=== PATIENT | female | born 1945 | race Caucasian/White ===

== ENCOUNTER 2023-10-09 04:40 | Inpatient (IN) | payer MEDICARE ==
[2023-10-09 05:38] LABS: Anisocytosis Slight; Basophils % (A) 0 %; Eosinophils # (A) 0.1 k/uL (0-0.7); Eosinophils % (A) 1 %; HCT 40.6 % (34.0-46.0); HGB 12.4 gm/dL (11.4-16.0); Hypochromasia Moderate; Lymphocytes # (A) 1.7 k/uL (1.0-4.8); Lymphocytes % (A) 18 %; MCH 25.7 pg (25.0-35.0); MCHC 30.6 g/dL (31.0-37.0); Mean Platelet Volume 9.8; Monocytes # (A) 0.4 k/uL (0-1.0); Monocytes % (A) 4 %; Neutrophils # (A) 7.2 k/uL (1.3-7.7); Neutrophils % (A) 76 %; Platelet Count 195 k/uL (150-450); RBC 4.83 m/uL (3.80-5.40); RDW 16.4 % (11.5-15.5); WBC 9.5 k/uL (3.8-10.6)
--- NOTE | 2023-10-09 05:42 | XR ---
EXAMINATION TYPE: XR chest 1V portable DATE OF EXAM: 10/09/2023 COMPARISON: NONE HISTORY: Dyspnea. TECHNIQUE: Single frontal view of the chest is obtained. FINDINGS: There is cardiomegaly and atherosclerotic thoracic aorta and central increased opacities. The osseous structures are intact. IMPRESSION: Suspect CHF exacerbation/fluid overload state. Correlate clinically.
[2023-10-09 05:47] LABS: INR 1.2 (<1.2); Partial Thromboplastin Time 27.9 sec (22.0-30.0); Prothrombin Time 12.9 sec (10.0-12.5)
[2023-10-09 05:57] LABS: ALT 34 U/L (4-34); AST 48 U/L (14-36); African American GFR (CKD) 85 (>60 ml/min/1.73 sqM); Alkaline Phosphatase 106 U/L (38-126); Anion Gap 14 mmol/L; Blood Urea Nitrogen 25 mg/dL (7-17); Calcium 8.7 mg/dL (8.4-10.2); Carbon Dioxide 19 mmol/L (22-30); Chloride 112 mmol/L (98-107); Glucose 122 mg/dL (74-99); Non-African American GFR(CKD) 74 (>60 ml/min/1.73 sqM); Potassium 3.5 mmol/L (3.5-5.1); Sodium 145 mmol/L (137-145); Total Bilirubin 1.3 mg/dL (0.2-1.3); Total Protein 6.6 g/dL (6.3-8.2)
[2023-10-09 06:06] LABS: NT-Pro-B-Type Natriuretic Pept 2030 pg/mL
[2023-10-09] MEDS: FUROSEMIDE 10 MG/ML 4 ML VIAL IV STA (06:33)
[2023-10-09] MEDS: NITROGLYCERIN OINT 1 INCH/GM PACKET TOPICAL STA (06:33)
--- NOTE | 2023-10-09 07:20 | ED ---
SOB HPI - General Chief Complaint: Shortness of Breath Stated Complaint: ROSENDA Time Seen by Provider: 10/09/23 05:26 Source: patient, EMS Mode of arrival: EMS Limitations: no limitations - History of Present Illness Initial Comments: This patient is 78-year-old woman who presents with complaint that she has had worsening shortness of breath going back a little over 2 day2. She states she had been seen October 06 at the clinic and states that they gave her "some pills." The patient states that she has not had any improvement and in fact may be feeling a little worse. Patient states that the breathing is worse when she is lying flat. It is better when she is sitting up. She denies change in her legs or swelling. No change in urination or bowel movements. No chest pain. MD Complaint: shortness of breath Onset/Timin -: days(s) Severity scale (1-10): 0 Consistency: constant Improves With: oxygen, upright position Worsens With: lying flat Associated Symptoms: cough, sputum production - Related Data Home Oxygen Therapy: No Home Medications Medication Instructions Recorded Confirmed Apixaban [Eliquis] 5 mg PO BID 10/09/23 10/09/23 Atorvastatin [Lipitor] 10 mg PO HS 10/09/23 10/09/23 Azithromycin [Zithromax Z Pack] See Taper PO DIRECTED 10/09/23 10/09/23 Famotidine [Pepcid] 20 mg PO DAILY 10/09/23 10/09/23 Levothyroxine Sodium [Synthroid] 25 mcg PO DAILY 10/09/23 10/09/23 Metoprolol Succinate (ER) [Toprol 100 mg PO DAILY 10/09/23 10/09/23 XL] Montelukast [Singulair] 10 mg PO HS 10/09/23 10/09/23 Spironolactone [Aldactone] 12.5 mg PO DAILY 10/09/23 10/09/23 Previous Rx's Medication Instructions Recorded Furosemide [Lasix] See Rx Instructions .ROUTE 10/10/23 .COMPLEX #90 tab Losartan [Cozaar] 12.5 mg PO DAILY #30 tab 10/10/23 Potassium Chloride ER [K-Dur 10] 10 meq PO DAILY #30 tab 10/10/23 Allergies Allergy/AdvReac Type Severity Reaction Status Date / Time Penicillins Allergy Unknown Verified 10/09/23 08:52 codeine AdvReac "makes Verified 10/09/23 08:52 patient hyper" Review of Systems ROS Statement: Those systems with pertinent positive or pertinent negative responses have been documented in the HPI. ROS Other: All systems not noted in ROS Statement are negative. Constitutional: Denies: fever, weakness Respiratory: Reports: cough, dyspnea Cardiovascular: Reports: orthopnea. Denies: chest pain, palpitations, edema, syncope Gastrointestinal: Denies: abdominal pain, vomiting, diarrhea, melena, hematochezia Genitourinary: Denies: dysuria, hematuria Musculoskeletal: Denies: back pain Skin: Denies: rash Neurological: Denies: headache, weakness Past Medical History Past Medical History: Atrial Fibrillation, COPD, Deep Vein Thrombosis (DVT), Hy perlipidemia, Hypertension History of Any Multi-Drug Resistant Organisms: None Reported Past Surgical History: Adenoidectomy, Tonsillectomy Past Psychological History: No Psychological Hx Reported Smoking Status: Former smoker Past Alcohol Use History: None Reported Past Drug Use History: None Reported General Exam Limitations: no limitations General appearance: alert, in no apparent distress Head exam: Present: atraumatic, normocephalic Eye exam: Present: normal appearance. Absent: scleral icterus, conjunctival injection Neck exam: Present: normal inspection Respiratory exam: Present: rales, rhonchi. Absent: respiratory distress, wheezes, stridor, accessory muscle use Cardiovascular Exam: Present: irregular rhythm, gallop. Absent: systolic murmur , diastolic murmur, rubs GI/Abdominal exam: Present: soft. Absent: distended, tenderness, guarding, rebound, rigid Extremities exam: Present: normal inspection, normal capillary refill. Absent: pedal edema, calf tenderness Back exam: Present: normal inspection. Absent: CVA tenderness (R), CVA tenderness (L) Neurological exam: Present: alert Skin exam: Present: warm, dry, intact, normal color. Absent: rash Course Vital Signs 10/09/23 10/09/23 10/09/23 04:46 05:59 06:20 Temperature 98.6 F Pulse Rate 87 69 73 Respiratory 18 18 16 Rate Blood Pressure 162/96 138/81 143/68 O2 Sat by Pulse 95 95 96 Oximetry 10/09/23 08:47 Temperature Pulse Rate 76 Respiratory 16 Rate Blood Pressure 128/69 O2 Sat by Pulse 96 Oximetry Medical Decision Making - Medical Decision Making The patient had chest x-ray that I interpreted as negative for acute infiltrate or pneumothorax. There is vascular congestion consistent with CHF Was pt. sent in by a medical professional or institution (JUAN Cramer, EXTRUSION PRESS SUPERVISOR, urgent care, hospital, or senior care...) When possible be specific @ -[No] Did you speak to anyone other than the patient for history (EMS, parent, family, police, friend...)? What history was obtained from this source @ -[No] Did you review nursing and triage notes (agree or disagree)? Why? @ -[I reviewed and agree with nursing and triage notes] Were old charts reviewed (outside hosp., previous admission, EMS record, old EKG, old radiological studies, urgent care reports/EKG's, senior care records)? Report findings @ -[No old charts were reviewed] Differential Diagnosis (chest pain, altered mental status, abdominal pain women, abdominal pain men, vaginal bleeding, weakness, fever, dyspnea, syncope, headache, dizziness, GI bleed, back pain, seizure, CVA, palpatations, mental health, musculoskeletal)? @ -[Differential Dyspnea: Coronary syndrome, arrhythmia, tamponade, asthma, COPD, pulmonary embolism, pneumonia, pneumothorax, pulmonary effusion, anaphylaxis, diabetic ketoacidosis, flailed chest, pulmonary contusion, diaphragmatic rupture, anemia, neuromuscular, this is not meant to be an all-inclusive list. EKG interpreted by me (3pts min.). @ -[I interpreted as above X-rays interpreted by me (1pt min.). @ -[I interpreted as above CT interpreted by me (1pt min.). @ -[None done] U/S interpreted by me (1pt. min.). @ -[None done] What testing was considered but not performed or refused? (CT, X-rays, U/S, labs)? Why? @ -[None] What meds were considered but not given or refused? Why? @ -[None] Did you discuss the management of the patient with other professionals (professionals i.e. JUAN Cramer, EXTRUSION PRESS SUPERVISOR, lab, RT, psych nurse, bilingual social worker, lawyer real estate, teacher, credit control officer, case folder)? Give summary @ -[Case discussed with admitting physician and treatment recommendations incorporated Was smoking cessation discussed for >3mins.? @ -[No] Was critical care preformed (if so, how long)? @ -[No] Were there social determinants of health that impacted care today? How? (Homelessness, low income, unemployed, alcoholism, drug addiction, transportation, low edu. Level, literacy, decrease access to med. care, fpc, rehab)? @ -[No] Was there de-escalation of care discussed even if they declined (Discuss DNR or withdrawal of care, Hospice)? DNR status @ -[No] What co-morbidities impacted this encounter? (DM, HTN, Smoking, COPD, CAD, Cancer, CVA, ARF, Chemo, Hep., AIDS, mental health diagnosis, sleep apnea, morbid obesity)? @ -[Atrial fibrillation, congestive heart failure Was patient admitted / discharged? Hospital course, mention meds given and route, prescriptions, significant lab abnormalities, going to OR and other pertinent info. @ -[Patient is 78-year-old woman here with dyspnea and found to have congestive heart failure. She started on diuretics and will be admitted for further treatment and evaluation Undiagnosed new problem with uncertain prognosis? @ -[No] Drug Therapy requiring intensive monitoring for toxicity (Heparin, Nitro, Insulin, Cardizem)? @ -[No] Were any procedures done? @ -[No] Diagnosis/symptom? @ -[Acute dyspnea Acute exacerbation of congestive heart failure Acute, or Chronic, or Acute on Chronic? @ -[ Uncomplicated (without systemic symptoms) or Complicated (systemic symptoms)? @ -[Complicated by dyspnea Side effects of treatment? @ -[No] Exacerbation, Progression, or Severe Exacerbation? @ -[Exacerbation Poses a threat to life or bodily function? How? (Chest pain, USA, MS, pneumonia, PE, COPD, DKA, ARF, appy, cholecystitis, CVA, Diverticulitis, Homicidal, Suicidal, threat to staff... and all critical care pts) @ -[Yes congestive heart failure may progress to respiratory failure as well - Lab Data Result diagrams: 10/10/23 04:19 10/10/23 04:19 Lab Results 10/09/23 10/09/23 10/09/23 Range/Units 05:00 05:00 05:00 WBC 9.5 (3.8-10.6) k/uL RBC 4.83 (3.80-5.40) m/uL Hgb 12.4 (11.4-16.0) gm/dL Hct 40.6 (34.0-46.0) % MCV 84.0 (80.0-100.0) fL MCH 25.7 (25.0-35.0) pg MCHC 30.6 L (31.0-37.0) g/dL RDW 16.4 H (11.5-15.5) % Plt Count 195 (150-450) k/uL MPV 9.8 Neutrophils % 76 % Lymphocytes % 18 % Monocytes % 4 % Eosinophils % 1 % Basophils % 0 % Neutrophils # 7.2 (1.3-7.7) k/uL Lymphocytes # 1.7 (1.0-4.8) k/uL Monocytes # 0.4 (0-1.0) k/uL Eosinophils # 0.1 (0-0.7) k/uL Basophils # 0.0 (0-0.2) k/uL Hypochromasia Moderate Anisocytosis Slight PT 12.9 H (10.0-12.5) sec INR 1.2 H (<1.2) APTT 27.9 (22.0-30.0) sec Sodium 145 (137-145) mmol/L Potassium 3.5 (3.5-5.1) mmol/L Chloride 112 H (98-107) mmol/L Carbon Dioxide 19 L (22-30) mmol/L Anion Gap 14 mmol/L BUN 25 H (7-17) mg/dL Creatinine 0.77 (0.52-1.04) mg/dL Est GFR (CKD-EPI)AfAm 85 (>60 ml/min/1.73 sqM) Est GFR (CKD-EPI)NonAf 74 (>60 ml/min/1.73 sqM) Glucose 122 H (74-99) mg/dL Lactic Ac Sepsis Rflx Plasma Lactic Acid Fernando (0.7-2.0) mmol/L Calcium 8.7 (8.4-10.2) mg/dL Total Bilirubin 1.3 (0.2-1.3) mg/dL AST 48 H (14-36) U/L ALT 34 (4-34) U/L Alkaline Phosphatase 106 (38-126) U/L Troponin I (0.000-0.034) ng/mL NT-Pro-B Natriuret Pep 2030 pg/mL Total Protein 6.6 (6.3-8.2) g/dL Albumin 4.0 (3.5-5.0) g/dL Influenza Type A (PCR) (Not Detectd) Influenza Type B (PCR) (Not Detectd) RSV (PCR) (Not Detectd) SARS-CoV-2 (PCR) (Not Detectd) 10/09/23 10/09/23 10/09/23 Range/Units 05:00 05:00 05:02 WBC (3.8-10.6) k/uL RBC (3.80-5.40) m/uL Hgb (11.4-16.0) gm/dL Hct (34.0-46.0) % MCV (80.0-100.0) fL MCH (25.0-35.0) pg MCHC (31.0-37.0) g/dL RDW (11.5-15.5) % Plt Count (150-450) k/uL MPV Neutrophils % % Lymphocytes % % Monocytes % % Eosinophils % % Basophils % % Neutrophils # (1.3-7.7) k/uL Lymphocytes # (1.0-4.8) k/uL Monocytes # (0-1.0) k/uL Eosinophils # (0-0.7) k/uL Basophils # (0-0.2) k/uL Hypochromasia Anisocytosis PT (10.0-12.5) sec INR (<1.2) APTT (22.0-30.0) sec Sodium (137-145) mmol/L Potassium (3.5-5.1) mmol/L Chloride (98-107) mmol/L Carbon Dioxide (22-30) mmol/L Anion Gap mmol/L BUN (7-17) mg/dL Creatinine (0.52-1.04) mg/dL Est GFR (CKD-EPI)AfAm (>60 ml/min/1.73 sqM) Est GFR (CKD-EPI)NonAf (>60 ml/min/1.73 sqM) Glucose (74-99) mg/dL Lactic Ac Sepsis Rflx Plasma Lactic Acid Fernando 2.4 H* (0.7-2.0) mmol/L Calcium (8.4-10.2) mg/dL Total Bilirubin (0.2-1.3) mg/dL AST (14-36) U/L ALT (4-34) U/L Alkaline Phosphatase (38-126) U/L Troponin I <0.012 (0.000-0.034) ng/mL NT-Pro-B Natriuret Pep pg/mL Total Protein (6.3-8.2) g/dL Albumin (3.5-5.0) g/dL Influenza Type A (PCR) Not Detected (Not Detectd) Influenza Type B (PCR) Not Detected (Not Detectd) RSV (PCR) Not Detected (Not Detectd) SARS-CoV-2 (PCR) Not Detected (Not Detectd) 10/09/23 Range/Units 06:43 WBC (3.8-10.6) k/uL RBC (3.80-5.40) m/uL Hgb (11.4-16.0) gm/dL Hct (34.0-46.0) % MCV (80.0-100.0) fL MCH (25.0-35.0) pg MCHC (31.0-37.0) g/dL RDW (11.5-15.5) % Plt Count (150-450) k/uL MPV Neutrophils % % Lymphocytes % % Monocytes % % Eosinophils % % Basophils % % Neutrophils # (1.3-7.7) k/uL Lymphocytes # (1.0-4.8) k/uL Monocytes # (0-1.0) k/uL Eosinophils # (0-0.7) k/uL Basophils # (0-0.2) k/uL Hypochromasia Anisocytosis PT (10.0-12.5) sec INR (<1.2) APTT (22.0-30.0) sec Sodium (137-145) mmol/L Potassium (3.5-5.1) mmol/L Chloride (98-107) mmol/L Carbon Dioxide (22-30) mmol/L Anion Gap mmol/L BUN (7-17) mg/dL Creatinine (0.52-1.04) mg/dL Est GFR (CKD-EPI)AfAm (>60 ml/min/1.73 sqM) Est GFR (CKD-EPI)NonAf (>60 ml/min/1.73 sqM) Glucose (74-99) mg/dL Lactic Ac Sepsis Rflx Y Plasma Lactic Acid Fernando (0.7-2.0) mmol/L Calcium (8.4-10.2) mg/dL Total Bilirubin (0.2-1.3) mg/dL AST (14-36) U/L ALT (4-34) U/L Alkaline Phosphatase (38-126) U/L Troponin I (0.000-0.034) ng/mL NT-Pro-B Natriuret Pep pg/mL Total Protein (6.3-8.2) g/dL Albumin (3.5-5.0) g/dL Influenza Type A (PCR) (Not Detectd) Influenza Type B (PCR) (Not Detectd) RSV (PCR) (Not Detectd) SARS-CoV-2 (PCR) (Not Detectd) - EKG Data -: EKG Interpreted by Me EKG shows normal: axis (Normal), intervals (Normal) Rate: normal (Rate 78 bpm) Interpretation: other (Underlying rhythm is atrial fibrillation) Disposition Clinical Impression: CHF (congestive heart failure) Disposition: ADMITTED IP TO THIS HOSP Condition: Fair Is patient prescribed a controlled substance at d/c from ED?: No
[2023-10-09] MEDS ORDERED: NALOXONE 0.4 MG/ML 1 ML VIAL IV PRN (09:57)
[2023-10-09] MEDS ORDERED: ACETAMINOPHEN TAB 325 MG TAB PO PRN (09:58)
[2023-10-09] MEDS ORDERED: ONDANSETRON 4 MG/2 ML VIAL IVP PRN (09:58)
--- NOTE | 2023-10-09 10:02 | P.HPIM ---
History of Present Illness H&P Date: 10/09/23 Chief Complaint: shortness of breath Patient is a also female with known COPD, prior pulmonary embolism, A-fib anticoagulated with Eliquis, hypertension, and dyslipidemia who presented to the emergency department via EMS with complaints of shortness of breath. On arrival to the ER vital signs were notable for blood pressure of 162/96. Initial laboratory analysis CBC, coag studies, CMP, troponin, and BNP which were remarkable for sodium chloride of 112, carbon dioxide 19, BUN 25, and glucose of 122. Lactic acid was elevated at 2.4. Influenza A/B/RSV/COVID-19 testing was negative. Initial troponin was negative. BNP was elevated at 2030. Chest x- ray demonstrated increased pulmonary vascular congestion. She was started on Nitropatch and given a dose of Lasix in the emergency department. Arrangements were made for admission. Patient seen and examined at bedside. She reports that she saw Dr. Cifuentes at [facility] and was prescribed prednisone adn zithromax on 10/07/23. Last night she took a breathing treatment last night and then felt better. This morning was short of breath and wheezing and called the ambulance. She has been feeling SOB since 10/05. She was been having increasing wheezing since that time. BReathing is worse with ambulation and laying flat. + edema b/l LE. Significant coughing. She denies any chest pain. No change in urine or bowel movements. No fevers at home. Appetitie has been at home. Follow with Dr. Sesay for A fib, last seen about 1 month ago. Possible hx of CHF in the past but she is not sure. 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 Vital signs reviewed General: nontoxic, no distress, appears at stated age, severe kyphosis Derm: warm, dry Eyes: EOMI, no lid lag, anicteric sclera, pupils equal round reactive to light ENT: Nose and ears atraumatic Cardiovascular: S1S2 reg, no murmur, 2+ edema bilateral lower extremities Lungs: Sounds bilateral, no rhonchi, no rales, no wheeze, + accessory muscle use Abdominal: soft, nontender to palpation, no guarding Ext: no gross muscle atrophy, no contractures Neuro: CN II-XII grossly intact, No focal neuro deficits Psych: Alert, oriented, appropriate affect Assessment/Plan: Acute exacerbation of diastolic heart failure, EF 50-55% Hypertension Dyslipidemia Permanent atrial fibrillation -Lasix 40 mg IV twice daily -Strict I's and O's, daily weights -Resume Aldactone 12.5 mg daily, metoprolol 100 mg daily -Lipitor 10 mg daily-trend troponins -Discontinue nitro - Echo from cardiology associates on physical chart Lactic acid likely secondary to hypoperfusion -No need to continue to trend Hypothyroidism -Levothyroxine 25 mcg daily COPD without exacerbation -Continue with Singulair -Will discontinue prednisone and Zithromax History of pulmonary embolism -Resume home Eliquis Imaging: X-rays reviewed by myself shows increased pulmonary vascular congestion with severe kyphosis. EKG is reviewed by myself shows atrial fibrillation with a ventricular rate of [address]-T wave changes. Data Review: As per HPI The patient is admitted with an anticipated less than 2 midnight stay for evaluation of Acute exacerbation of Congestive heart failure. Surrogate decision-maker: Son CODE STATUS: Yes for PCR, meds, and shock, no for intubation DVT prophylaxis: Eliquis Anticipated discharge date: in 24-[address]: home This dictation was prepared using [employer] voice recognition software. Though every attempt is made to correct errors during dictation some may still exist. Past Medical History Past Medical History: Atrial Fibrillation, COPD, Hyperlipidemia, Hypertension Additional Past Medical History / Comment(s): Pulmonary Embolism History of Any Multi-Drug Resistant Organisms: None Reported Past Surgical History: Adenoidectomy, Tonsillectomy Past Psychological History: No Psychological Hx Reported Smoking Status: Former smoker Past Alcohol Use History: None Reported Past Drug Use History: None Reported Medications and Allergies Home Medications Medication Instructions Recorded Confirmed Type Apixaban [Eliquis] 5 mg PO BID 10/09/23 10/09/23 History Atorvastatin [Lipitor] 10 mg PO HS 10/09/23 10/09/23 History Azithromycin [Zithromax Z Pack] See Taper PO DIRECTED 10/09/23 10/09/23 History Famotidine [Pepcid] 20 mg PO DAILY 10/09/23 10/09/23 History Furosemide [Lasix] 20 mg PO BID-W/MEALS 10/09/23 10/09/23 History Levothyroxine Sodium [Synthroid] 25 mcg PO DAILY 10/09/23 10/09/23 History Metoprolol Succinate (ER) [Toprol 100 mg PO DAILY 10/09/23 10/09/23 History Xl] Montelukast [Singulair] 10 mg PO HS 10/09/23 10/09/23 History Spironolactone [Aldactone] 12.5 mg PO DAILY 10/09/23 10/09/23 History predniSONE [Deltasone] 40 mg PO DAILY 10/09/23 10/09/23 History Allergies Allergy/AdvReac Type Severity Reaction Status Date / Time Penicillins Allergy Unknown Verified 10/09/23 08:52 codeine AdvReac "makes Verified 10/09/23 08:52 patient hyper" Physical Exam Osteopathic Statement: *. No significant issues noted on an osteopathic structural exam other than those noted in the History and Physical/Consult. Vitals: Vital Signs Temp Pulse Pulse Resp BP BP Pulse Ox 10/09/23 09:40 98.2 F 71 18 144/87 96 10/09/23 08:47 76 16 128/69 96 10/09/23 06:20 73 16 143/68 96 10/09/23 05:59 69 18 138/81 95 10/09/23 04:46 98.6 F 87 18 162/96 95 Intake and Output 10/08/23 10/09/23 10/09/23 22:59 06:59 14:59 Other: Weight 76.657 kg Results CBC & Chem 7: 10/09/23 05:00 10/09/23 05:00 Labs: Abnormal Lab Results - Last 24 Hours (Table) 10/09/23 10/09/23 10/09/23 Range/Units 05:00 05:00 05:00 MCHC 30.6 L (31.0-37.0) g/dL RDW 16.4 H (11.5-15.5) % PT 12.9 H (10.0-12.5) sec INR 1.2 H (<1.2) Chloride 112 H (98-107) mmol/L Carbon Dioxide 19 L (22-30) mmol/L BUN 25 H (7-17) mg/dL Glucose 122 H (74-99) mg/dL Plasma Lactic Acid Fernando (0.7-2.0) mmol/L AST 48 H (14-36) U/L 04/06/24 Range/Units 05:00 MCHC (31.0-37.0) g/dL RDW (11.5-15.5) % PT (10.0-12.5) sec INR (<1.2) Chloride (98-107) mmol/L Carbon Dioxide (22-30) mmol/L BUN (7-17) mg/dL Glucose (74-99) mg/dL Plasma Lactic Acid Fernando 2.4 H* (0.7-2.0) mmol/L AST (14-36) U/L
[2023-10-09] MEDS: SPIRONOLACTONE 25 MG TAB PO SCH (10:53)
[2023-10-09] MEDS: LOSARTAN 25 MG TAB PO SCH (10:53)
[2023-10-09] MEDS: METOPROLOL SUCCINATE (ER) 100 MG TAB.ER.24H PO SCH (10:54)
[2023-10-09] MEDS: FAMOTIDINE 20 MG TAB PO SCH (10:54)
[2023-10-09] MEDS: APIXABAN 5 MG TAB PO SCH (10:56)
[2023-10-09] MEDS: LEVOTHYROXINE 25 MCG TAB PO SCH (10:56)
--- NOTE | 2023-10-09 13:00 | CONS ---
CONSULTATION CHIEF COMPLAINT: Shortness of breath. HISTORY OF PRESENT ILLNESS: Jazmin is a 78-year-old lady with a history of permanent atrial fibrillation, COPD, prior history of pulmonary embolism, hypertension, dyslipidemia, who presented to hospital with shortness of breath. Her blood pressure was poorly controlled on her initial presentation. Chest x-ray showed pulmonary congestion and the patient's symptoms have improved with intravenous diuretics. At the time of my evaluation, patient appears comfortable at rest. Troponin is negative. BNP is elevated at 2030. EKG shows atrial fibrillation with nonspecific ST-T wave changes. PAST MEDICAL HISTORY: Significant for permanent atrial fibrillation, hypertension, hypothyroidism, dyslipidemia and COPD. MEDICATIONS: Medications at home included: 1. Aldactone. 2. Singulair. 3. Toprol-XL. 4. Synthroid. 5. Pepcid. 6. Lipitor. 7. Eliquis. 8. Lasix. 9. Z-Carlos. ALLERGIES: Penicillin and codeine. FAMILY HISTORY: Negative for premature coronary artery disease. SOCIAL HISTORY: Negative for current smoking issues or drug abuse. REVIEW OF SYSTEMS: 14 out of 14 review of systems has been performed, pertinents are as documented. PHYSICAL EXAMINATION: VITAL SIGNS: Afebrile, heart rate is 70 beats per minute, blood pressure 130/69, respiratory rate 18, O2 saturation is 96% on 2 L. CHEST: Reveals occasional crackles bilaterally. HEART: Reveals first and second heart sounds. Irregular rhythm and a systolic murmur at the apex. ABDOMEN: Soft. EXTREMITIES: Reveals 1+ edema. Peripheral pulses are felt. LABORATORY DATA: Labs show a hemoglobin of 12.4, platelet count is 195, creatinine is 0.7. BNP is elevated. Troponin is negative. ASSESSMENT: 1. Permanent atrial fibrillation with controlled ventricular rate. 2. Acute exacerbation of chronic diastolic heart failure. PLAN: We will obtain a 2D echo. Continue the IV Lasix and continue rest of her medications. MMODL / IJN: [id number] /
[2023-10-09 14:01] VITALS: BMI 28.1
[2023-10-09] MEDS: FUROSEMIDE 10 MG/ML 4 ML VIAL IV SCH (18:08)
[2023-10-09] MEDS ORDERED: MELATONIN 3 MG TABLET PO PRN (21:00)
[2023-10-09] MEDS: ATORVASTATIN 10 MG TAB PO SCH (21:33)
[2023-10-09] MEDS: MONTELUKAST 10 MG TAB PO SCH (21:33)
[2023-10-09 22:35] VITALS: TEMP 97.3
[2023-10-10 03:40] VITALS: PULSE 74
[2023-10-10 09:45] LABS: HCT 38.8 % (37.2-46.3); HGB 11.7 g/dL (12.0-15.0); MCH 25.2 pg (27.0-32.0); MCHC 30.2 g/dL (32.0-37.0); MCV 83.6 FL (80.0-97.0); Mean Platelet Volume 12.2 FL (9.5-12.2); NRBC Per 100 WBC 0 X 10*3/uL (0.00-0.01); Platelet Count 215 X 10*3/uL (140-440); RBC 4.64 X 10*6/uL (4.10-5.20); RDW 17.1 % (11.5-14.5); WBC 11.89 X 10*3/uL (4.50-10.00)
[2023-10-10 09:48] VITALS: BP 134/84; RESP 20
[2023-10-10 10:02] LABS: BUN/Creat Ratio 23.25 Ratio (12.00-20.00); Blood Urea Nitrogen 18.6 mg/dL (9.0-27.0); Calcium 8.5 mg/dL (8.7-10.3); Carbon Dioxide 27.4 mmol/L (21.6-31.8); Chloride 107 mmol/L (96-109); Glucose 96 mg/dL (70-110); Magnesium 2.2 mg/dL (1.5-2.4); Phosphorus 3.5 mg/dL (2.4-5.1); Potassium 3.2 mmol/L (3.5-5.5); Sodium 147 mmol/L (135-145)
[2023-10-10] MEDS ORDERED: Potassium Replacement Protocol 1 EACH MISC MISCELLANE PRN (10:27)
--- NOTE | 2023-10-10 10:33 | PN ---
PROGRESS NOTE SUBJECTIVE: Jazmin is a 78-year-old lady who is admitted to hospital with shortness of breath. She has known atrial fibrillation, COPD, and prior history of pulmonary embolism. She was in congestive heart failure. We treated her with intravenous diuretics with significant improvement in her symptoms. PHYSICAL EXAMINATION: GENERAL: At the time of my evaluation this morning, she appears comfortable at rest. VITAL SIGNS: Afebrile, heart rate is 74 beats, blood pressure is 130/84, respiratory rate is 18, and O2 saturation is 94% on 2 L. NECK: There is no jugular venous distention. CHEST: Reveals good air entry bilaterally. HEART: Reveals first and second heart sounds, irregular rhythm and a systolic murmur at the apex. ABDOMEN: Soft. EXTREMITIES: Did not reveal any edema. Peripheral pulses are felt. LABORATORY DATA: Show that the potassium is 3.2, which will be supplemented. Hemoglobin is 11.7, creatinine is 0.8. ASSESSMENT: Acute exacerbation of chronic diastolic heart failure, permanent atrial fibrillation. PLAN: Patient to switch the Lasix to p.o. Send the patient home on K-Dur along with the Lasix. She sees Dr. Sesay in our office and will arrange a followup with him on discharge. MMODL / IJN: [id number] /
[2023-10-10] MEDS: POTASSIUM CHLORIDE ER 20 MEQ TAB.ER PO SCH (10:43)
--- NOTE | 2023-10-10 10:49 | P.DS ---
Providers Date of admission: 10/09/23 06:45 Expected date of discharge: 10/10/23 Attending physician: Siri Melendez MD Consults: 10/09/23 06:43 Consult Physician Routine Consulting Provider: Rodriguez Sesay Consult Reason/Comments: Your patient. CHF exacerbation Do you want consulting provider notified?: Yes Primary care physician: Stated None Hospital Course: Discharge Diagnosis: Acute exacerbation of diastolic heart failure, EF 50-55% Hypernatrmia, due to forced diuresis Hypokalemia Hypertension Dyslipidemia Permanent atrial fibrillation Lactic acid likely secondary to hypoperfusion COPD without exacerbation History of pulmonary embolism Hospital Course: Patient is a also female with known COPD, prior pulmonary embolism, A-fib anti coagulated with Eliquis, hypertension, and dyslipidemia who presented to the emergency department via EMS with complaints of shortness of breath. On arrival to the ER vital signs were notable for blood pressure of 162/96. Initial laboratory analysis CBC, coag studies, CMP, troponin, and BNP which were remarkable for sodium chloride of 112, carbon dioxide 19, BUN 25, and glucose of 122. Lactic acid was elevated at 2.4. Influenza A/B/RSV/COVID-19 testing was negative. Initial troponin was negative. BNP was elevated at 2030. Chest x- ray demonstrated increased pulmonary vascular congestion. She was started on Nitropatch and given a dose of Lasix in the emergency department. Arrangements were made for admission. Cardiology. Her recent echocardiogram was reviewed. She was continued on diuresis. By the next morning she had significant improvement in her shortness of breath and lower extremity edema. She was cleared by cardiology for discharge. She was noted to have slightly low potassium levels at 3.5 on day of admission and 3.2 on day of discharge. She was therefore started on potassium supplementation. She was also started on Cozaar during her hospital stay due to mildly elevated blood pressures and diagnosis of congestive heart failure. Follow-up: New medications include Lasix being increased to 40 mg in the morning and 20 mg at night, potassium chloride 10 mill equivalents daily, losartan 12.5 mg daily. She will have repeat blood work in 3 days to monitor potassium and sodium levels with results to [facility] at [facility] and Dr. Sesay. She is to follow-up with Vane in 1 to [address] Sesay her outpatient fitness club manager in 1 to 2 weeks. Patient seen and examined at bedside. Better today than yesterday but still having some shortness of breath. We had a александр discussion that her significant kyphosis and scoliosis may be causing some shortness of breath. Vital signs reviewed and stable. General: Nontoxic, no distress, appears at stated age Cardiovascular: S1S2 reg, no murmur, positive posterior tibial pulse bilateral, Lungs: Decreased breath sounds bilateral, no rhonchi, no rales, no accessory mu scle use Abdominal: Soft, nontender to palpation, no guarding, no appreciable organomegaly Ext: No gross muscle atrophy, no edema b/l lower extremities, no contractures Neuro: CN II-XI grossly intact, no focal neuro deficits Psych: Alert, oriented, appropriate affect A total of 32 minutes of time were spent preparing this complex discharge summary. Patient was discharged on 10/10/23. This dictation was prepared using [employer] voice recognition software. Though every attempt is made to correct errors during dictation some may still exist. Plan - Discharge Summary Discharge Rx Participant: Yes New Discharge Prescriptions: New Losartan [Cozaar] 12.5 mg PO DAILY #30 tab Potassium Chloride ER [K-Dur 10] 10 meq PO DAILY #30 tab Furosemide [Lasix] See Rx Instructions .ROUTE .COMPLEX #90 tab Continue Levothyroxine Sodium [Synthroid] 25 mcg PO DAILY Famotidine [Pepcid] 20 mg PO DAILY Apixaban [Eliquis] 5 mg PO BID Montelukast [Singulair] 10 mg PO HS Metoprolol Succinate (ER) [Toprol XL] 100 mg PO DAILY Atorvastatin [Lipitor] 10 mg PO HS Azithromycin [Zithromax Z Pack] See Taper PO DIRECTED Spironolactone [Aldactone] 12.5 mg PO DAILY Discontinued predniSONE [Deltasone] 40 mg PO DAILY Furosemide [Lasix] 20 mg PO BID-W/MEALS Discharge Medication List Apixaban [Eliquis] 5 mg PO BID 10/09/23 [History] Atorvastatin [Lipitor] 10 mg PO HS 10/09/23 [History] Azithromycin [Zithromax Z Pack] See Taper PO DIRECTED 10/09/23 [History] Famotidine [Pepcid] 20 mg PO DAILY 10/09/23 [History] Levothyroxine Sodium [Synthroid] 25 mcg PO DAILY 10/09/23 [History] Metoprolol Succinate (ER) [Toprol XL] 100 mg PO DAILY 10/09/23 [History] Montelukast [Singulair] 10 mg PO HS 10/09/23 [History] Spironolactone [Aldactone] 12.5 mg PO DAILY 10/09/23 [History] Furosemide [Lasix] See Rx Instructions .ROUTE .COMPLEX #90 tab 10/10/23 [Rx] Losartan [Cozaar] 12.5 mg PO DAILY #30 tab 10/10/23 [Rx] Potassium Chloride ER [K-Dur 10] 10 meq PO DAILY #30 tab 10/10/23 [Rx] Follow up Appointment(s)/Referral(s): Rodriguez Sesay MD [STAFF PHYSICIAN] - 1 Week [facility] [REFERRING] - 1-2 Days Ambulatory/Diagnostic Orders: Basic Metabolic Panel [LAB.AMB] Time Frame: 3 Days, Location: None Selected Activity/Diet/Wound Care/Special Instructions: Activity: As tolerated Diet: Heart healthy, 2L fluid restriction Special Instructions: Monitor your weight daily. Call your fitness club manager if you gain more than 2 pounds in 1 day or 3 pounds in 5 days. Blood work in 3 days to check your potassium level and salt level Discharge Disposition: HOME WITH HOME HEALTH SERVICES
[2023-10-10] MEDS ORDERED: NITROGLYCERIN OINT 1 INCH/GM PACKET TOPICAL SCH (13:00)
== END 2023-10-10 14:03 | disposition home health service (06) | DRG 291 ==
LOC: EC 04:40 → 5NMEDONC 06:45 → 6NMEDSUR 06:52
PROVIDERS: ADMIT Internal Medicine; ATTEND Internal Medicine
DX: I11.0 Hypertensive heart disease with heart failure (principal); I50.33 Acute on chronic diastolic (congestive) heart failure; E87.0 Hyperosmolality and hypernatremia; I48.21 Permanent atrial fibrillation; J44.9 Chronic obstructive pulmonary disease, unspecified; E03.9 Hypothyroidism, unspecified; E87.6 Hypokalemia; E78.5 Hyperlipidemia, unspecified; M41.9 Scoliosis, unspecified; T50.1X5A Adverse effect of loop [high-ceiling] diuretics, initial encounter; Z79.01 Long term (current) use of anticoagulants; Z79.890 Hormone replacement therapy; Z79.899 Other long term (current) drug therapy; Z87.891 Personal history of nicotine dependence; Z86.711 Personal history of pulmonary embolism; Z86.718 Personal history of other venous thrombosis and embolism; Z88.5 Allergy status to narcotic agent; Z88.0 Allergy status to penicillin
CPT/HCPCS: 36415; 71045; 80048; 80053; 83605; 83735; 83880; 84100; 84484; 85025; 85027; 85610; 85730; 87636; 93005; 96374; 96375; 99285

== ENCOUNTER 2024-07-06 05:54 | Observation (INO) | payer MEDICARE ==
[2024-07-06 06:33] LABS: Anisocytosis Slight; Basophils % (A) 1 %; Eosinophils # (A) 0.2 k/uL (0-0.7); Eosinophils % (A) 3 %; HCT 38.3 % (34.0-46.0); Hypochromasia Marked; Lymphocytes # (A) 1.1 k/uL (1.0-4.8); Lymphocytes % (A) 14 %; MCH 25.4 pg (25.0-35.0); MCHC 31.2 g/dL (31.0-37.0); MCV 81.2 fL (80.0-100.0); Monocytes # (A) 0.4 k/uL (0-1.0); Monocytes % (A) 5 %; Neutrophils % (A) 76 %; Platelet Count 202 k/uL (150-450); RBC 4.72 m/uL (3.80-5.40); RDW 16.4 % (11.5-15.5)
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
[2024-07-06 06:52] LABS: ALT 14 U/L (4-34); AST 24 U/L (14-36); African American GFR (CKD) 74 (>60 ml/min/1.73 sqM); Alkaline Phosphatase 104 U/L (38-126); Anion Gap 12 mmol/L; Blood Urea Nitrogen 24 mg/dL (7-17); Carbon Dioxide 19 mmol/L (22-30); Chloride 111 mmol/L (98-107); Glucose 119 mg/dL (74-99); INR 1.3 (<1.2); Magnesium 2.3 mg/dL (1.6-2.3); Non-African American GFR(CKD) 65 (>60 ml/min/1.73 sqM); Partial Thromboplastin Time 28.7 sec (22.0-30.0); Sodium 142 mmol/L (137-145); Total Bilirubin 1.9 mg/dL (0.2-1.3); Total Protein 6.4 g/dL (6.3-8.2)
[2024-07-06] MEDS: FUROSEMIDE 10 MG/ML 4 ML VIAL IV STA (07:47)
[2024-07-06] MEDS: APIXABAN 5 MG TAB PO SCH (08:09)
--- NOTE | 2024-07-06 08:32 | XR ---
EXAMINATION TYPE: XR chest 2V DATE OF EXAM: 07/06/2024 6:20 AM COMPARISON: 10/09/2023 CLINICAL INDICATION: Female, 79 years old with history of Chest Pain, TECHNIQUE: XR chest 2V view(s) obtained. FINDINGS: The heart size is prominent. The pulmonary vasculature is prominent. Mild diffuse scattered infiltrates present may be related to pulmonary edema IMPRESSION: 1. Clinical correlation recommended for congestive heart failure. Follow-up recommended [facility], , 07/06/2024 8:30 AM
[2024-07-06] MEDS: APIXABAN 5 MG TAB PO ONE (08:34)
[2024-07-06] MEDS ORDERED: APIXABAN 5 MG TAB PO SCH (09:00)
[2024-07-06 09:51] LABS: Appearance,Urine Clear (Clear); Bacteria,Urine Moderate /hpf; Bilirubin,Urine Negative (Negative); Blood,Urine Large (Negative); Color,Urine Colorless; Glucose,Urine (UA) Negative (Negative); Ketones,Urine Negative (Negative); Leukocyte Esterase,Urine Trace (Negative); Nitrite,Urine Positive (Negative); Protein,Urine Negative (Negative); RBC,Urine 17 /hpf (0-5); Specific Gravity,Urine 1.009 (1.001-1.035); Squamous Epithelial Cell,Urine 2 /hpf (0-4); Urobilinogen,Urine <2.0 mg/dL (<2.0); WBC,Urine 3 /hpf (0-5)
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
[2024-07-06] MEDS: FUROSEMIDE 10 MG/ML 4 ML VIAL IV SCH (12:20)
[2024-07-06] MEDS: DAPAGLIFLOZIN PROPANEDIOL 10 MG TABLET PO SCH (12:21)
[2024-07-06] MEDS: METOPROLOL SUCCINATE (ER) 100 MG TAB.ER.24H PO SCH (12:21)
[2024-07-06] MEDS: SPIRONOLACTONE 25 MG TAB PO SCH (12:21)
[2024-07-06] MEDS: POTASSIUM CHLORIDE ER 10 MEQ TAB.ER.PRT PO SCH (12:21)
[2024-07-06 18:28] VITALS: TEMP 97.5
[2024-07-06] MEDS: HYDROcodone/APAP 5-325MG 1 EACH TAB PO PRN (19:34)
[2024-07-06] MEDS: MONTELUKAST 10 MG TAB PO SCH (20:13)
[2024-07-06] MEDS: ATORVASTATIN 20 MG TAB PO SCH (20:13)
[2024-07-06] MEDS ORDERED: ATORVASTATIN 10 MG TAB PO SCH (21:00)
[2024-07-07 08:13] LABS: Anisocytosis Slight; HCT 39.4 % (34.0-46.0); HGB 12.2 gm/dL (11.4-16.0); Hypochromasia Marked; MCH 25.3 pg (25.0-35.0); MCHC 30.9 g/dL (31.0-37.0); MCV 81.8 fL (80.0-100.0); Mean Platelet Volume 8.9; Platelet Count 206 k/uL (150-450); RBC 4.82 m/uL (3.80-5.40); RDW 16.5 % (11.5-15.5); WBC 7.8 k/uL (3.8-10.6)
[2024-07-07 08:20] LABS: ALT 14 U/L (4-34); AST 18 U/L (14-36); African American GFR (CKD) 59 (>60 ml/min/1.73 sqM); Albumin 3.8 g/dL (3.5-5.0); Albumin/Globulin Ratio 1.6; Alkaline Phosphatase 106 U/L (38-126); Anion Gap 7 mmol/L; Blood Urea Nitrogen 24 mg/dL (7-17); Calcium 8.9 mg/dL (8.4-10.2); Carbon Dioxide 29 mmol/L (22-30); Chloride 106 mmol/L (98-107); Globulin 2.4 g/dL; Glucose 111 mg/dL (74-99); Non-African American GFR(CKD) 51 (>60 ml/min/1.73 sqM); Potassium 3.9 mmol/L (3.5-5.1); Sodium 142 mmol/L (137-145); Total Bilirubin 1.6 mg/dL (0.2-1.3); Total Protein 6.2 g/dL (6.3-8.2)
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
[2024-07-07 09:00] LABS: Blood Urea Nitrogen 22.4 mg/dL (9.0-27.0); Glucose 111 mg/dL (70-110)
[2024-07-07] MEDS ORDERED: APIXABAN 5 MG TAB PO SCH (09:00)
[2024-07-07 09:01] LABS: Calcium 8.8 mg/dL (8.7-10.3); Carbon Dioxide 24.9 mmol/L (21.6-31.8); Chloride 107 mmol/L (96-109); Potassium 3.9 mmol/L (3.5-5.5); Sodium 144 mmol/L (135-145)
[2024-07-07] MEDS: FAMOTIDINE 20 MG TAB PO SCH (09:04)
[2024-07-07] MEDS: LEVOTHYROXINE 25 MCG TAB PO SCH (09:06)
[2024-07-07] MEDS: APIXABAN 2.5 MG TABLET PO SCH (09:06)
[2024-07-07] MEDS: FUROSEMIDE 40 MG TAB PO SCH (09:10)
--- NOTE | 2024-07-07 10:57 | P.PN ---
Subjective HISTORY OF PRESENT ILLNESS: This is a 79-year-old female with a past medical history significant for atrial fibrillation, congestive heart failure, hypertension, hyperlipidemia, and pulmonary embolism. Patient follows in the office with Dr. Sesay. We have been asked to see the patient in consultation for CHF. Patient examined at the bedside in the emergency room. Patient presented to the hospital with a chief complaint of shortness of breath. Patient states she has been feeling short of breath on and off for the past 2 days. She also reports increased lower extremity edema. She does report having weight gain recently but is unable to specify how many pounds she has gained. She reports that she has been compliant with all of her medications. It appears that she has been compliant with a low- sodium diet per her history. Patient was given a dose of IV Lasix in the emergency room. She reports her shortness of breath has improved this morning. DIAGNOSTICS: - EKG reveals atrial fibrillation with controlled ventricular rate - Chest xray clinical correlation recommended for congestive heart failure. - Laboratory data: WBC 8.0. Hemoglobin 12.0. Platelet count 202. Sodium 142. Potassium 4.0. BUN 24. Creatinine 0.86. Magnesium 2.3. Troponin negative x 1. proBNP 1350. - Current home cardiac medications include Eliquis 2.5 mg twice a day, atorvastatin 10 mg at night, Aldactone 12.5 mg daily, Lasix 40 mg daily, meto prolol succinate 100 mg daily - Most recent echocardiogram obtained in August 2023 revealed ejection fraction 50 to 55%, mild MR, mild AI - Cardiac catheterization history: Unknown 07/07/2024 Patient examined this morning in the emergency room. Patient currently denies chest pain or pressure. She reports improvement in her shortness of breath. She remains on IV Lasix. Vital signs are stable. PHYSICAL EXAM: VITAL SIGNS: Reviewed. GENERAL: Well-developed in no acute distress. HEENT: Head is normocephalic. Pupils are equal, round. Sclerae anicteric. Mucous membranes of the mouth are moist. Neck supple. No JVD or thyromegaly LUNGS: Respirations even and unlabored. Lungs essentially clear to auscultation bilaterally. HEART: Irregular rate and rhythm. S1 and S2 heard. ABDOMEN: Soft. Nondistended. Nontender. EXTREMITIES: Normal range of motion. No clubbing or cyanosis. Peripheral pul ses intact. No lower extremity edema NEUROLOGIC: Awake and alert. Oriented x 3. ASSESSMENT: Shortness of breath Acute on chronic heart failure with preserved EF, 50 to 55% Persistent atrial fibrillation with controlled ventricular rate Hypertension Hyperlipidemia History of pulmonary embolism Abnormal UA PLAN: Patient with abnormal UA. Will hold off on adding Farxiga at this time. May reevaluate on an outpatient basis. Discontinue IV Lasix. Begin oral Lasix. Cancel order for inpatient echo. This may be performed on an outpatient basis as the patient is stable for discharge home today Discharge per medicine We will sign off. Please reconsult if needed. Nurse practitioner note has been reviewed by physician. Signing provider agrees with the documented findings, assessment, and plan of care documented by BACK END ENGINEER as a scribe. Objective - Vital Signs Vital signs: Vital Signs Temp 97.5 F L 07/07/24 08:55 Pulse 79 07/07/24 08:55 Resp 16 07/07/24 08:55 BP 135/75 07/07/24 08:55 Pulse Ox 93 L 07/07/24 08:56 FiO2 Intake & Output 07/06/24 07/07/24 07/07/24 18:59 06:59 18:59 Output Total 2029 1100 Balance -2029 -1100 Weight 83.461 kg Output: Urine 2029 1099 Female - External 180 650 - Labs CBC & Chem 7: 07/07/24 07:49 07/07/24 07:49 Labs: Abnormal Lab Results - Last 24 Hours (Table) 07/07/24 07/07/24 07/07/24 Range/Units 03:23 07:49 07:49 MCHC 30.9 L (31.0-37.0) g/dL RDW 16.5 H (11.5-15.5) % Anion Gap 12.10 H (4.00-12.00) mmol/L BUN 24 H (7-17) mg/dL Est GFR (CKD-EPI) 57 L (>=60) BUN/Creatinine Ratio 22.40 H (12.00-20.00) Ratio Glucose 111 H 111 H (70-110) mg/dL Total Bilirubin 1.6 H (0.2-1.3) mg/dL Total Protein 6.2 L (6.3-8.2) g/dL
--- NOTE | 2024-07-07 17:49 | P.DS ---
Providers Date of admission: 07/06/24 08:03 Expected date of discharge: 07/07/24 Attending physician: Sonido Jc Primary care physician: Sonido Jc Hospital Course: HISTORY OF PRESENT ILLNESS: This is an 79-year-old female patient of mine with a previous medical history significant for hypertension and hypertensive cardiovascular disease, mixed hyperlipidemia, hypothyroidism, history of pulmonary emboli on the right paroxysmal atrial fibrillation, osteoporosis, allergic rhinitis, prediabetes, was recently found to have a uterine mass after she had an investigation for lower abdominal pain she ended up going for MRI of the pelvis that showed evidence of uterine mass suggestive of possible uterine cancer she will be seen by Dr. Newberry here in [facility] on July 11, 2024 for evaluation and treatment, patient apparently was brought into the emergency department at [facility] yesterday because of increased shortness of breath associated with increased swelling both lower extremities, according to her son was at the bedside he stated that the patient has been eating more salt and she has not been eating well over the last few days through the holiday season and that she woke up from sleep and she was complaining of increased shortness of breath at that time, EMS was called and the patient was brought into the ER she was found to have a acute diastolic heart failure, she was start ed on IV diuretics in the form of Lasix 40 mg IV push every 12 hours, she was seen in consultation by cardiology who recommended to do an echocardiogram, continue IV diuretics, and admit the patient to the hospital for inpatient treatment of acute diastolic heart failure. 1/3: Patient is doing better today, she denies any chest pain, she is less short of breath, she has no abdominal pain, nausea vomiting or diarrhea, she seems to be tolerating treatment very well, echocardiogram was canceled, patient appears to be stable at this point in time, she will be discharged home and follow-up with us as an outpatient. Discharge diagnoses: 1. Acute hypoxemic respiratory failure due to acute diastolic heart failure. 2. Chronic atrial fibrillation. 3. Hypertension and hypertensive cardiovascular disease. 4. Mixed hyperlipidemia. 5. Prediabetes. 6. Hypothyroidism. 7. GERD. 8. Allergic rhinitis. 9. Uterine mass suggestive of uterine cancer follow-up with Dr. Newberry July 11, 2019 25th at [facility] here at [facility]. Patient Condition at Discharge: Good Plan - Discharge Summary New Discharge Prescriptions: No Action Levothyroxine Sodium [Synthroid] 25 mcg PO DAILY Famotidine [Pepcid] 20 mg PO DAILY Potassium Chloride ER [K-Dur 10] 10 meq PO DAILY #30 tab Montelukast [Singulair] 10 mg PO HS Metoprolol Succinate (ER) [Toprol XL] 100 mg PO DAILY Atorvastatin [Lipitor] 10 mg PO HS Spironolactone [Aldactone] 12.5 mg PO DAILY Apixaban [Eliquis] 2.5 mg PO BID Furosemide [Lasix] 40 mg PO DAILY Discharge Medication List Atorvastatin [Lipitor] 10 mg PO HS 10/09/23 [History] Famotidine [Pepcid] 20 mg PO DAILY 10/09/23 [History] Levothyroxine Sodium [Synthroid] 25 mcg PO DAILY 10/09/23 [History] Metoprolol Succinate (ER) [Toprol XL] 100 mg PO DAILY 10/09/23 [History] Montelukast [Singulair] 10 mg PO HS 10/09/23 [History] Spironolactone [Aldactone] 12.5 mg PO DAILY 10/09/23 [History] Potassium Chloride ER [K-Dur 10] 10 meq PO DAILY #30 tab 10/10/23 [Rx] Apixaban [Eliquis] 2.5 mg PO BID 07/06/24 [History] Furosemide [Lasix] 40 mg PO DAILY 07/06/24 [History] Follow up Appointment(s)/Referral(s): Sonido Jc MD [Primary Care Provider] - 1-2 days
--- NOTE | 2024-07-07 19:16 | CA ---
Transthoracic Echo Report Name: Jazmin Chatman Age: 79 Gender: F : 1945 Exam Date: 07/07/2024 10:14 Exam Location: [place] [facility] Ht (in): 64 Wt (lb): 184 Ordering Physician: Alexa Haywood Attending/Referring Phys: [id number], Yobany Etl [employer] Architect Sylvia Triplett, RDJESUS Procedure CPT: Indications: chf, sob Cardiac Hx: Technical Quality: Fair Contrast 1: Total Dose (mL): Contrast 2: Total Dose (mL): MEASUREMENTS (Male / Female) Normal Values 2D ECHO LV Diastolic Diameter PLAX 4.1 cm 4.2 - 5.9 / 3.9 - 5.3 cm LV Systolic Diameter PLAX 2.7 cm IVS Diastolic Thickness 1.0 cm 0.6 - 1.0 / 0.6 - 0.9 cm LVPW Diastolic Thickness 0.9 cm 0.6 - 1.0 / 0.6 - 0.9 cm LV Relative Wall Thickness 0.5 RV Internal Dim ED PLAX 3.1 cm LA Systolic Diameter LX 3.3 cm 3.0 - 4.0 / 2.7 - 3.8 cm LV Diastolic Volume MOD 4C 60.4 cm??? LV Systolic Volume MOD 4C 31.7 cm??? LV Ejection Fraction MOD 4C 47.5 % LV Cardiac Index MOD 4C 1018.9 cm???/min???m??? LV Diastolic Length 4C 7.9 cm LV Systolic Length 4C 7.0 cm M-MODE Aortic Root Diameter MM 3.3 cm DOPPLER AV Peak Velocity 98.1 cm/s AV Peak Gradient 3.9 mmHg AI Peak Velocity 341.9 cm/s AI Peak Gradient 46.8 mmHg AI Pressure Half Time 785.5 ms LVOT Peak Velocity 82.0 cm/s LVOT Peak Gradient 2.7 mmHg MV Area PHT 4.7 cm??? TR Peak Velocity 302.8 cm/s TR Peak Gradient 36.7 mmHg Right Ventricular Systolic Press 46.7 mmHg FINDINGS Left Ventricle Left ventricular ejection fraction is estimated at 45-50. Left ventricular cavity size normal. Left ventricular wall thickness normal. Right Ventricle Normal right ventricular size. Moderate pulmonary hypertension. Right Atrium Normal right atrial size. No right atrial thrombus or mass seen. Left Atrium Normal left atrial size. No left atrial thrombus or mass present. Mitral Valve Mitral valve thickened. Trace to mild mitral regurgitation. Aortic Valve Trileaflet aortic valve. Thickened aortic valve without stenosis. Mild-to- moderate aortic regurgitation. Tricuspid Valve Structurally normal tricuspid valve. Mild tricuspid regurgitation. Pulmonic Valve Pulmonic valve not well visualized. No pulmonic regurgitation. Pericardium No pericardial or pleural effusion. Aorta Normal size aortic root and proximal ascending aorta. CONCLUSIONS Mildly impaired LV function with EF between 45 to 50% Mild to moderate aortic insufficiency Moderate pulmonary hypertension Mild tricuspid regurgitation Previewed by: Dr. Jordan Vuong MD (Electronically Signed) Final Date: 07 July 2024 19:15
[2024-07-07 20:47] VITALS: BP 146/72; PULSE 73; RESP 22
== END 2024-07-07 20:30 | disposition home health service (06) ==
LOC: EC 05:54 → 6NMEDSUR 08:03
PROVIDERS: ADMIT Internal Medicine; ATTEND Internal Medicine
DX: I11.0 Hypertensive heart disease with heart failure (principal); I50.33 Acute on chronic diastolic (congestive) heart failure; J96.01 Acute respiratory failure with hypoxia; I48.19 Other persistent atrial fibrillation; I08.0 Rheumatic disorders of both mitral and aortic valves; E78.2 Mixed hyperlipidemia; N85.9 Noninflammatory disorder of uterus, unspecified; C67.9 Malignant neoplasm of bladder, unspecified; R82.90 Unspecified abnormal findings in urine; E03.9 Hypothyroidism, unspecified; M81.0 Age-related osteoporosis without current pathological fracture; R73.03 Prediabetes; M19.90 Unspecified osteoarthritis, unspecified site; J30.9 Allergic rhinitis, unspecified; K21.9 Gastro-esophageal reflux disease without esophagitis; Z79.01 Long term (current) use of anticoagulants; Z79.890 Hormone replacement therapy; Z79.899 Other long term (current) drug therapy; Z88.0 Allergy status to penicillin; Z88.5 Allergy status to narcotic agent; Z87.891 Personal history of nicotine dependence; Z86.711 Personal history of pulmonary embolism; Z11.52 Encounter for screening for COVID-19; Z11.59 Encounter for screening for other viral diseases
CPT/HCPCS: 96376; 96374; 99291; 36415; 93005; 93306; 83880; 80053 ×2; 80048; 83735; 84484; 85025; 85027; 85610; 85730; 81001; 87636; 71046; G0378 ×2; J1940

== ENCOUNTER 2024-11-08 04:03 | Emergency (ER) | payer MEDICARE ==
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
[2024-11-08 04:09] VITALS: TEMP 98.1
[2024-11-08 05:39] VITALS: BP 122/65; PULSE 72; RESP 16
== END 2024-11-08 05:39 | disposition home or self-care (01) ==
LOC: EC 04:03
DX: R04.0 Epistaxis (principal); Z87.891 Personal history of nicotine dependence; Z88.0 Allergy status to penicillin; Z88.5 Allergy status to narcotic agent; Z79.01 Long term (current) use of anticoagulants
CPT/HCPCS: 99283

== ENCOUNTER → 2025-01-03 | Outpatient (CLI) | payer MEDICARE ==
--- NOTE | 2025-01-03 15:08 | CT ---
EXAMINATION TYPE: CT chest wo con DATE OF EXAM: 01/03/2025 12:09 PM COMPARISON: None. CLINICAL INDICATION: Female, 79 years old with history of C54.1 MALIGNANT NEOPLASM OF ENDOMETRIUM, MA LIGNANT NEOPLASM OF ENDOMETRIUM TECHNIQUE: Unenhanced CT of the chest was performed with lung and mediastinal window settings submitt ed. The lack of contrast limits evaluation of the vascular, mediastinal and parenchymal structures i ncluding the upper abdomen. CT DLP: 571 mGycm, Automated exposure control for dose reduction was used. FINDINGS: LUNGS: The lungs are clear and free of infiltrate. No atelectasis. No pulmonary nodule or mass is de tected. No pleural effusion. No CT evidence of interstitial lung disease. MEDIASTINUM/HERNAN: Thoracic aorta is of normal caliber with limited evaluation given lack of contrast . No evidence for mediastinal mass. No lymph nodes greater than 1cm. HEART: Size within normal limits. No significant coronary artery calcifications. UPPER ABDOMEN: No significant abnormality is seen. OTHER: No significant other abnormality. IMPRESSION: 1. No evidence for metastatic disease to the chest. [facility], , 01/03/2025 3:06 PM
== END | disposition home or self-care (01) ==
LOC: RADCTMAIN 11:35
PROVIDERS: ATTEND Radiology Radiation Oncology
DX: C54.1 Malignant neoplasm of endometrium (principal)
CPT/HCPCS: 71250; 99213